=== PATIENT | female | born 1995 | race Caucasian/White ===

== ENCOUNTER → 2018-02-11 | Outpatient (CLI) | payer BC ==
--- NOTE | 2018-02-11 08:37 | US ---
EXAMINATION TYPE: US gallbladder DATE OF EXAM: 02/11/2018 COMPARISON: NONE CLINICAL HISTORY: K21.9 GERD, K81.1; patient states has abdominal burning and epigastric pain after c ertain foods and coffee EXAM MEASUREMENTS: Liver Length: 14.0 cm Gallbladder Wall: 0.2 cm CBD: 0.2 cm Right Kidney: 9.6 x 4.7 x 4.2 cm Pancreas: wnl Liver: wnl Gallbladder: wnl Evidence for sonographic Ramos's sign: no CBD: wnl Right Kidney: wnl IMPRESSION: No shadowing mobile gallstones or ultrasound evidence for acute cholecystitis.
--- NOTE | 2018-02-11 11:14 | NM ---
EXAMINATION TYPE: NM hepatobiliary w EF DATE OF EXAM: 02/11/2018 COMPARISON: Same day gallbladder ultrasound HISTORY: GERD per order. K 21.9 and K81.1 per order. TECHNIQUE: After the intravenous administration of 5.2 mCi Tc 99m Mebrofenin hepatobiliary scintigrap hy is performed. Immediate images post injection. FINDINGS: There is satisfactory initial accumulation of tracer by the liver. The gallbladder is visualized wit hin 15 minutes. The small bowel activity is noted within 30 minutes. At one hour 8 ounces of oral e nsure plus is given to mimic CCK and gallbladder ejection fraction is calculated at 95 %, elevated fr om the normal range. Therefore there is no scintigraphic evidence of cystic or common bile duct obst ruction to suggest acute cholecystitis. Patient also experienced symptoms of nausea and cramping afte r oral Essure consumption. \ IMPRESSION: Ejection fraction is 95%, elevated from the normal range and patient experienced symptoms of nausea and cramping, findings are considered abnormal or a hyperkinetic response given above.
== END | disposition home or self-care (01) ==
LOC: RADUSMAIN 07:56
PROVIDERS: ATTEND Surgery Plastic and Reconstructive Surgery
DX: K21.9 Gastro-esophageal reflux disease without esophagitis (principal)
CPT/HCPCS: 76705; 78226; A9537

== ENCOUNTER 2018-02-18 11:34 | Day surgery (SDC) | payer BC ==
[2018-02-16 14:42] VITALS: BMI 28.8
[~2018-02-18 11:34] MED LIST: LACTATED RINGERS 1,000 ML IV SCH
[2018-02-18 11:47] VITALS: RESP 16; TEMP 96.6
[2018-02-18] MEDS ORDERED: LIDOCAINE 1% 20 ML VIAL (10MG/ML) FOR IV START INTRADERMA ONE (12:04)
[2018-02-18] MEDS ORDERED: PROPOFOL 10 MG/ML 20 ML VIAL IV ONE (12:09)
[2018-02-18] MEDS ORDERED: MIDAZOLAM 2 MG/2 ML VIAL ONE (12:09)
[2018-02-18] MEDS ORDERED: LIDOCAINE 1% INJ 10MG/ML (20 ML MDV) ONE (12:09)
--- NOTE | 2018-02-18 12:25 | P.GSHP ---
History of Present Illness H&P Date: 02/18/18 CHIEF COMPLAINT: GERD HISTORY OF PRESENT ILLNESS: The patient is a 22-year-old female who presents reports gastroesophageal reflux disease. Upper endoscopy was offered for further evaluation and management. PAST MEDICAL HISTORY: Please see list. PAST SURGICAL HISTORY: Please see list. MEDICATIONS: Please see list. ALLERGIES: Please see list. SOCIAL HISTORY: No illicit drug use FAMILY HISTORY: No reports of Crohn disease or ulcerative colitis. REVIEW OF ORGAN SYSTEMS: CONSTITUTIONAL: No reports of fevers or chills. GI: Denies any blood in stools or constipation. PHYSICAL EXAM: VITAL SIGNS: Stable GENERAL: Well-developed and pleasant in no acute distress. HEENT: No scleral icterus. Extraocular movements grossly intact. Moist buccal mucosa. NECK: Supple without lymphadenopathy. CHEST: Unlabored respirations. Equal bilateral excursions. CARDIOVASCULAR: Regular rate and rhythm. Distal 2+ pulses. ABDOMEN: Soft, nondistended. MUSCULOSKELETAL: No clubbing, cyanosis, or edema. ASSESSMENT: 1. Gastroesophageal reflux disease PLAN: 1. Recommend proceeding with an upper endoscopy Past Medical History Additional Past Medical History / Comment(s): RUQ pain, gas, bloating, belching , nauseated @times since had baby 4 mos ago History of Any Multi-Drug Resistant Organisms: None Reported Past Surgical History: Tonsillectomy Past Anesthesia/Blood Transfusion Reactions: No Reported Reaction Smoking Status: Current every day smoker - Past Family History Mother Family Medical History: No Reported History Medications and Allergies Home Medications Medication Instructions Recorded Confirmed Type Levonorgestrel [Mirena] 1 implant VAGINAL [id number] 02/16/18 02/18/18 History Pnv No.95/Ferrous Fum/Folic AC 1 each PO DAILY 02/16/18 02/18/18 History [ Multivitamin Tablet] Allergies Allergy/AdvReac Type Severity Reaction Status Date / Time No Known Allergies Allergy Verified 02/16/18 14:12 Surgical - Exam Vital Signs Temp Pulse Resp BP Pulse Ox 96.6 F L 83 16 100/60 97 02/18/18 11:46 02/18/18 11:46 02/18/18 11:46 02/18/18 11:46 02/18/18 11:46
--- NOTE | 2018-02-18 12:30 | P.PCN ---
Date of Procedure: 02/18/18 Description of Procedure: PREOPERATIVE DIAGNOSIS: Gastroesophageal reflux disease. POSTOPERATIVE DIAGNOSIS: Gastritis. Gastroesophageal reflux disease. OPERATION: Esophagogastroduodenoscopy with biopsies along antrum. SURGEON: Vanessa Bailon MD ANESTHESIA: MAC. INDICATIONS: The patient is a 22-year-old female who presents with a history of reflux disease. Benefits and risks of the procedure were described. Informed consent was obtained. DESCRIPTION: The patient was brought into the endoscopy suite and laid in the left lateral decubitus position. An Olympus gastroscope was passed along the posterior oropharynx down to the distal esophagus where the squamocolumnar junction was encountered at 38 cm from the incisors. The stomach was entered and no bile reflux was found. Additional findings are listed below. Biopsies with cold forceps were obtained of the antrum. The first through third portion of the duodenum was examined and unremarkable. Retroflexion of the scope confirmed Hill grade 1 lower esophageal valve. The squamocolumnar junction demostrated early and acute LA grade A erosive esophagitis. The stomach was desufflated. The patient tolerated the procedure well. FINDINGS: Squamocolumnar junction 38 cm from the incisors. Diaphragmatic hiatus at 38 cm. Hill grade 1 lower esophageal valve. LA grade A erosive esophagitis. No active duodenitis. Mild gastritis RECOMMENDATIONS: Further recommendations pending results of pathology report. Upper endoscopy as needed. Plan - Discharge Summary New Discharge Prescriptions: No Action Levonorgestrel [Mirena] 1 implant VAGINAL [id number] Pnv No.95/Ferrous Fum/Folic AC [ Multivitamin Tablet] 1 each PO DAILY Discharge Medication List Levonorgestrel [Mirena] 1 implant VAGINAL [id number] 02/16/18 [History] Pnv No.95/Ferrous Fum/Folic AC [ Multivitamin Tablet] 1 each PO DAILY [History]
[2018-02-18 12:54] VITALS: BP 95/63; PULSE 80
== END 2018-02-18 13:10 | disposition home or self-care (01) ==
LOC: ORWHC2ENDO 11:34
PROVIDERS: ATTEND Surgery Plastic and Reconstructive Surgery
DX: K29.50 Unspecified chronic gastritis without bleeding (principal); K21.0 Gastro-esophageal reflux disease with esophagitis; K22.10 Ulcer of esophagus without bleeding; F17.200 Nicotine dependence, unspecified, uncomplicated; Z79.3 Long term (current) use of hormonal contraceptives
CPT/HCPCS: 81025; 88305; 43239; J2250; J2001; J2704